=== PATIENT | male | born 1955 | race Caucasian/White ===

== ENCOUNTER 2019-01-27 06:39 | Inpatient (IN) ==
[2019-01-21 12:20] LABS: Basophils # (Auto) 0 K/mcL (0.0-0.3); Basophils % (Auto) 0.3 % (0.0-2.0); Eosinophils # (Auto) 0.1 K/mcL (0.0-0.7); Eosinophils % (Auto) 1.2 % (0.0-7.0); Granulocytes % (Auto) 64.7 % (38.0-78.0); Hematocrit 49.6 % (41.0-55.0); Hemoglobin 16.2 g/dL (13.5-16.5); Lymphocytes # (Auto) 1.5 K/mcL (1.5-4.8); Lymphocytes % (Auto) 26.9 % (15.5-49.0); Mean Cell Volume 87.2 fL (80.0-100.0); Mean Corpuscular HGB Conc 32.6 g/dL (31.0-36.0); Mean Platelet Volume 7.1 fL (7.4-10.4); Monocytes # (Auto) 0.4 K/mcL (0.1-0.9); Monocytes % (Auto) 6.9 % (1.0-12.0); Platelet Count 294 K/mcL (140-440); RBC 5.69 M/mcL (4.50-5.90); Red Cell Distribution Width 14.1 % (11.5-14.5); WBC 5.5 K/mcL (4.5-11.0)
[2019-01-21 12:42] LABS: Blood Urea Nitrogen 19 mg/dl (8-23); Calcium 9.7 mg/dl (8.6-10.4); Carbon Dioxide 27 mmol/L (22-30); Chloride 104 mmol/L (96-108); Glomerular Filtration Rate 89; Glucose 98 mg/dL (70-105)
[2019-01-21 12:51] LABS: Estimated Average Glucose(eAG) 117 mg/dL; Hemoglobin A1C 5.7 % HGB (4.0-6.0)
[2019-01-21 14:23] LABS: Appearance,Urine CLEAR; Bilirubin,Urine NEG (NEG); Color,Urine YELLOW; Glucose,Urine (UA) NEGATIVE (NEG); Ketones,Urine NEG (NEG); Leukocyte Esterase,Urine NEG /uL (NEG); Nitrate,Urine NEG (NEG); Protein,Urine NEG (NEG); Specific Gravity,Urine 1.014 (1.000-1.035); Urine Blood NEG mg/dL (<0.03); Urobilinogen,Urine NEG (NEG)
[~2019-01-27 06:39] MED LIST: CELECOXIB 200 MG CAPSULE PO SCH; IPRATROPIUM/ALBUTEROL 3 ML AMPUL.NEB NEB PRN; PREGABALIN 75 MG CAPSULE PO SCH; SCOPOLAMINE 1 PATCH PATCH TOPICAL PRN; ceFAZolin 2 GM in DEXTROSE 5% IN WATER 50 ML IV SCH; oxyCODONE 10 MG TAB.ER.12H PO SCH
[2019-01-27] MEDS ORDERED: ONDANSETRON 4 MG/2 ML VIAL IV ONE (10:00)
[2019-01-27] MEDS ORDERED: DEXAMETHASONE 10 MG/ML VIAL IV ONE (10:00)
[2019-01-27] MEDS ORDERED: PROPOFOL 200 MG/20 ML VIAL IV ONE (10:00)
[2019-01-27] MEDS ORDERED: PHENYLEPHRINE 10 MG/ML VIAL IV ONE (10:00)
[2019-01-27] MEDS ORDERED: MIDAZOLAM 5 MG/5 ML VIAL IV ONE (10:00)
[2019-01-27] MEDS ORDERED: FAMOTIDINE/PF 20 MG/2 ML VIAL IV ONE (10:00)
[2019-01-27] MEDS ORDERED: TRANEXAMIC ACID 1,000 MG/10 ML VIAL IV ONE ×2 (10:00→12:11)
[2019-01-27] MEDS ORDERED: LIDOCAINE HCL/PF 100 MG/5 ML SYRINGE IV ONE (10:00)
[2019-01-27] MEDS ORDERED: ePHEDrine 50 MG/ML AMPUL IV ONE (10:00)
[2019-01-27] MEDS ORDERED: ONDANSETRON 4 MG/2 ML VIAL IV PRN ×2 (11:07→12:11)
[2019-01-27] MEDS ORDERED: diphenhydrAMINE 50 MG/ML VIAL IV PRN (11:07)
[2019-01-27] MEDS ORDERED: NALOXONE HCL 0.4 MG/ML VIAL IV PRN (11:07)
[2019-01-27] MEDS ORDERED: IPRATROPIUM/ALBUTEROL 3 ML AMPUL.NEB NEB PRN (11:07)
[2019-01-27] MEDS ORDERED: METHOCARBAMOL 1,000 MG/10 ML VIAL IV PRN (11:07)
[2019-01-27] MEDS ORDERED: PROMETHAZINE 25 MG/ML VIAL IV PRN (11:07)
[2019-01-27] MEDS ORDERED: ePHEDrine 50 MG/ML AMPUL IV PRN (11:07)
[2019-01-27] MEDS ORDERED: ATROPINE SULFATE 0.4 MG/ML VIAL IV PRN (11:07)
[2019-01-27] MEDS ORDERED: FLUMAZENIL 0.1 MG/ML ML IV PRN (11:07)
[2019-01-27] MEDS ORDERED: METOPROLOL TARTRATE 5 MG/5 ML VIAL IV PRN (11:07)
[2019-01-27] MEDS ORDERED: fentaNYL 100 MCG/2 ML VIAL IV PRN (11:07)
[2019-01-27] MEDS ORDERED: MEPERIDINE 25 MG/ML SYRINGE IV PRN (11:07)
[2019-01-27] MEDS ORDERED: HYDROmorphone 2 MG/ML VIAL IV PRN (11:07)
[2019-01-27] MEDS ORDERED: LACTATED RINGERS 1,000 ML IV SCH (11:15)
--- NOTE | 2019-01-27 12:06 | Brief Operative Note ---
Date of procedure: 01/27/19 Pre-op diagnosis: Left hip severe DJD Post-op diagnosis: same Procedure: Left anterior total hip arthroplasty Grafts/Implants: Yes (Depuy Actis 9 std stem, +8.5 36 delta head, 56 cup, neutral altrx liner) Anesthesia: spinal, GLMA Findings: severe arthritis Complications: none Surgeon: João Sullivan Chemical Test Engineer: Von Laureano Specimens Removed/Pathology: none sent Condition: stable Disposition: PACU
--- NOTE | 2019-01-27 12:09 | XRay Report ---
CLINICAL INFORMATION: left total hip arthroplasty COMPARISON: None. FINDINGS: Digital images from the OR show left total hip prostheses placement which is anatomically aligned. No osseous abnormalities. Soft tissue swelling seen as expected IMPRESSION: Left total hip prostheses in anatomic alignment Interpreted and Authenticated by: Ravin Baltazar 01/27/19
[2019-01-27] MEDS ORDERED: MAGNESIUM HYDROXIDE 30 ML ORAL.SUSP PO PRN (12:11)
[2019-01-27] MEDS ORDERED: BISACODYL 10 MG SUPP.RECT PR PRN (12:11)
[2019-01-27] MEDS ORDERED: FLEETS ADULT ENEMA PR PRN (12:11)
[2019-01-27] MEDS ORDERED: POLYETHYLENE GLYCOL 3350 17 GM PACKET PO PRN (12:11)
[2019-01-27] MEDS ORDERED: KETOROLAC 30 MG/ML VIAL IV PRN (12:11)
[2019-01-27] MEDS ORDERED: BENZOCAINE/MENTHOL 1 LOZENGE PO PRN (12:11)
--- NOTE | 2019-01-27 12:52 | XRay Report ---
CLINICAL INFORMATION: Post-Op Total Hip COMPARISON: None. FINDINGS: Left total hip prostheses is anatomically aligned. No osseous abnormalities. Soft tissue swelling over the surgical site seen - as expected. Both SI and right hip joints are normal. IMPRESSION: Left total hip prostheses anatomically aligned Interpreted and Authenticated by: Ravin Baltazar 01/27/19
--- NOTE | 2019-01-27 12:55 | Operative Note ---
DATE OF OPERATION: 01/27/2019 PREOPERATIVE DIAGNOSIS: Left hip severe osteoarthritis. POSTOPERATIVE DIAGNOSIS: Left hip severe osteoarthritis. PROCEDURE PERFORMED: Left anterior total hip arthroplasty placing a DePuy Actis size 9 standard offset femoral stem; a +8.5, 36 mm delta ceramic head ball; a 56 [place] cup with a neutral Altrx liner. SURGEON: João Sullivan M.D. PACKING MACHINE CAN FEEDER: Jamison Laureano PA-C. The PA's assistance was required for the safe and efficient completion of the entire case. This provider's expertise and technical skill were required throughout the case. The PA assisted with preoperative coordination, intraoperative retraction, wound closure, dressing and splint application, as well as postoperative documentation and care coordination. ANESTHESIA: Spinal plus general. DRAINS: None. SPECIMENS: Femoral head which was discarded. BLOOD LOSS: 500 mL. COMPLICATIONS: None. POSTOPERATIVE CONDITION: Stable. INDICATIONS FOR SURGERY: This is a 63-year-old male who has had longstanding, severe left hip osteoarthritis. Radiographs showed complete obliteration of the joint space with large femoral head and acetabular osteophytes and deformation of the femoral head. FINDINGS AT SURGERY: As above. Post-procedure showed satisfactory component position with limb lengthening to equal his nonoperative side. PROCEDURE IN DETAIL: The patient had been seen preoperatively. Informed consent had been obtained after discussion of risks and benefits of surgery. Risks including, but not limited to, bleeding, possibly requiring transfusion; infection, possibly requiring implant removal and prolonged IV antibiotics; injury to nerves, blood vessels, and other surrounding structures; anesthetic risks; incomplete or no resolution of symptoms; leg length discrepancy; dislocation; fracture; DVT and pulmonary embolus risks; and the possibility of needing further revision surgery. He understood these risks and wished to proceed. Correct operative site was marked and then patient received spinal anesthesia. He was then taken to the operating room and LMA general given. He was carefully positioned on the Buckley table, and the left hip and groin were then carefully prepped and draped in normal sterile fashion, and a time-out was performed verifying patient name, operative site, and plan. Ioban was used to cover all skin surfaces. A standard anterior approach incision was made with a scalpel through skin and subcutaneous tissue. Hemostasis was obtained with Bovie cautery and then careful blunt dissection taken down onto the tensor fascia, and this was undermined circumferentially. Irrisept was irrigated and a ring retractor was placed. Tensor fascia was incised in line with the muscle fibers and then careful blunt dissection taken medial to the muscle belly. Blunt cobra retractors were placed on the superior and inferior neck and then circumflex vessels were coagulated and cut and vastus fascia split distally. An anterior capsulectomy was performed and capsule releases taken out towards the trochanters. Traction was placed on the leg. Corkscrew was placed in the femoral head and then osteotome used under fluoro to identify our neck cut trajectory. We then made our neck cut and removed the femoral head. Acetabulum was then exposed. He had very large osteophytes which were removed with a rongeur superiorly. What remained of labrum was removed and soft tissue was removed from the floor. I then used a reamer after irrigating Irrisept to medialize all the way to the tear drop and then increased reamer size and angle. His bone was very soft and the reamer ended up medializing all the way to the inner table. It took a 55 reamer to get rim ream satisfactory to get press-fit, so we went ahead and opened a 56 three-hole [place] cup. The acetabulum was irrigated again with Irrisept, after a minute copiously pulse lavaged with saline, and then the [id number] was used to impact the cup at about 45 degrees of inclination and 20 degrees of anteversion. JointPoint was used to verify cup position. We then removed the ME impactor and placed a center hole cover. He had very large osteophytes, essentially circumferentially, and so we spent about 15 minutes then working with osteotome to remove anterior and inferior osteophytes and then posterior osteophytes as well. Once we had all of these osteophytes removed, we then placed a neutral Altrx liner, carefully aligned the tabs and impacted. From that point of the procedure on after removing all the osteophytes, there was some steady oozing. We took traction off the leg and externally rotated, released capsule around the medial neck and posteriorly, and then the leg was extended and adducted. Capsule was released out to the greater trochanter, and once we had adequate proximal femur exposure, a box osteotome was used to gain canal entry and awl was used to identify canal trajectory. Rongeur and rasp were used to lateralize. Again, his bone was quite soft here. We started broaching and sequentially broached up to a size 7 that we preoperatively templated on. This sunk a little bit below our neck cut, so we calcar planed down onto it. We then trialed with a +1.5 head ball and a high offset neck given the medialization of the cup. Hip reduced very easily with minimal tension. JointPoint was used with fluoro to check our leg length and offset, and with that we were not lengthening the leg at all and our offset was just about equal. I went ahead then and redislocated, and we broached up to a size 8. This was seating below our neck cut still, so I went up to a size 9. This seated right at our neck cut. I used a hand broach just to feel where a 10 would hang up, and it appeared that the 10 would be way too long, so using JointPoint we figured that with a 9 standard offset stem and a +8.5 neck that would give us some increased leg length, as well as increase our offset instead of needing a high offset stem, so I went ahead and opened a 9 standard offset stem. We removed the trial implant and irrigated the femoral canal with Irrisept. After waiting a minute, I pulse lavaged copiously with saline. The stem was then impacted and it did seat on our calcar, so I went ahead and trialed the +8.5. There was some good tension without being excessive with reduction. Fluoro was brought in and an x-ray checked and JointPoint used to check, and we were lengthened 5 mm on the leg and offset was only increased by 1 mm, so we went ahead and redislocated. We removed the trial head ball. The stem was cleaned and dried and then the 36, +8.5 delta head was opened. This was impacted onto the stem with the [id number]. We then reduced the hip. Final fluoro images were taken and saved. We filled the joint with Irrisept, after a minute pulse lavaged copiously with saline, and then #1 Vicryl running stitch was used in two running stitches to close the tensor fascia. Ring retractor was removed and Irrisept irrigated a final time, after a minute pulse lavage with saline. Fat was tacked to fascia and then 2-0 Monocryl used for subcutaneous and joseph for skin. Xeroform and sterile dressing were applied. The patient was then awakened, extubated, and transferred to recovery in stable condition. [email or web address] Job ID: [id number] Doc ID: [id number] João Sullivan MD
[2019-01-27] MEDS: 0.9 % SODIUM CHLORIDE 10 ML SYRINGE IV SCH ×2 (15:35→20:58)
[2019-01-27] MEDS: ceFAZolin 1 GM VIAL IV SCH (17:37)
[2019-01-27] MEDS: 0.9 % SODIUM CHLORIDE 1,000 ML IV SCH ×2 (17:37→20:28)
[2019-01-27] MEDS: HYDROCODONE/APAP 7.5/325MG TABLET PO PRN ×2 (17:38→21:00)
[2019-01-27] MEDS: DOCUSATE SODIUM 100 MG CAPSULE PO SCH (20:58)
[2019-01-27] MEDS ORDERED: SENNOSIDES 1 TABLET PO SCH (21:00)
[2019-01-28] MEDS: ceFAZolin 1 GM VIAL IV SCH (01:22)
[2019-01-28] MEDS: 0.9 % SODIUM CHLORIDE 1,000 ML IV SCH ×2 (04:36→11:50)
[2019-01-28] MEDS: HYDROCODONE/APAP 7.5/325MG TABLET PO PRN (05:57)
[2019-01-28] MEDS: 0.9 % SODIUM CHLORIDE 10 ML SYRINGE IV SCH ×2 (05:58→14:56)
--- NOTE | 2019-01-28 06:44 | Discharge Summary ---
Providers - Providers Patient information: Note initiated : 01/28/19 at 6:39 am Service Date, if different from initiated Date: [] Patient: Ravin Diaz 63 y/o M admitted on 01/27/19 for Left Total Hip Arthroplasty Anterior. Chief Complaint: [] Discharge date: 01/28/19 Hospitalization Hospital Course: Pt was admitted for a L ASHUTOSH. Pt underwent the procedure on the day of admission. Discharged post-op day 1. ASA for DVT prophylaxis. F/u in 2 weeks. Discharge diagnosis: L hip OA Exam - Exam Clean and dry: Yes Weight bearing status: as tolerated Ortho Discharge - ASHUTOSH - Patient Instructions Diet: Regular Diet Activity: activity as tolerated Total Hip Protocol: Follow activity instructions as provided by Physical Therapy. Dressing Care: May shower in 2 days - Follow Up Plan Follow Up Appointments: Von Laureano PA-C [Physician Case Management Manager] - 02/11/19 1:00 pm Disposition: Home, Self-Care Prognosis: Good Rehab Potential: Good Overall status at discharge: patient is progressing back to baseline - Orders For Discharge Prescriptions: Aspirin 81 tab CHEWED DAILY #30 tab.chew Transmission Status: Pending to [facility] Hydrocodone/APAP 7.5/325Mg [[place] 7.5-325Mg] 1 - 2 tab PO Q4HP PRN #90 tab PRN Reason: Pain Level 3-6 Prescription Printed Pending Studies Resuscitation Status Full Code Diet Regular Diet Start FriJan 27 121 Hydrocodone Bitart/Acetaminophen ([place] 7.5/325mg) 0 tab PO Q4HP PRN PRN Reason: PAIN LEVEL 3-6 Last Admin: 01/28/19 05:57 Dose: 1 tab Documented by: Admin: 01/27/19 21:00 Dose: 1 tab Documented by: Admin: 01/27/19 17:38 Dose: 1 tab Documented by: [email or web address] Docusate Sodium (Colace) 100 mg PO BID [facility] Last Admin: 01/27/19 20:58 Dose: 100 mg Documented by: TABBY Sodium Chloride (Sodium Chloride 0.9%) 1,000 mls @ 125 mls/hr IV .Q8H PATITO Last Admin: 01/28/19 04:36 Dose: Not Given Documented by: Infusion: 01/28/19 01:33 Dose: 0 mls/hr Documented by: Admin: 01/27/19 20:28 Dose: Not Given Documented by: Admin: 01/27/19 17:37 Dose: 125 mls/hr Documented by: [email or web address] Ketorolac Tromethamine (Toradol) 30 mg IV Q6HP PRN PRN Reason: Pain Stop: 01/29/19 12:15 Last Admin: 01/27/19 17:35 Dose: 30 mg Documented by: [email or web address] Senna (Senokot) 2 tab PO HS PATITO Last Admin: 01/27/19 20:58 Dose: 2 tab Documented by: TABBY Sodium Chloride (Saline Flush) 10 ml IV Q8 PATITO Last Admin: 01/28/19 05:58 Dose: 10 ml Documented by: Admin: 01/27/19 20:58 Dose: Not Given Documented by: Admin: 01/27/19 15:35 Dose: Not Given Documented by: [email or web address] Shift Summary 01/28/19 04:30 Shift Summary by Agueda Ramirez A&O. Calls appropriately. EBL was 500ml. Patient has some dizziness still when getting up though it has been getting better as the night goes. Ambulated to nursing station x2. Voiding well, PVRs are down to 130-175mls. Up with 1 assist, mostly SBA, FWW and GB. VSS on RA. 18G IV to LFA, SL. Medicated just one time so far with 1 tab [place] 7.5mg at HS and ice packs. I have encouraged a pill at 0600 for PT, he is agreeable. Should d/c home today, needs to work on stairs, he lives alone and there are steps to get into his house. Initialized on 01/28/19 04:30 - END OF NOTE
[2019-01-28 06:45] LABS: Hematocrit 38.3 % (41.0-55.0); Hemoglobin 12.7 g/dL (13.5-16.5)
[2019-01-28] MEDS ORDERED: OMEPRAZOLE 20 MG CAPSULE PO SCH (07:30)
[2019-01-28] MEDS ORDERED: ASPIRIN 81 MG TAB.CHEW CHEWED SCH (09:00)
[2019-01-28] MEDS: DOCUSATE SODIUM 100 MG CAPSULE PO SCH (10:38)
[2019-01-28] MEDS ORDERED: 0.9 % SODIUM CHLORIDE 500 ML IV ONE ×2 (13:45→14:39)
== END 2019-01-28 18:00 | disposition home or self-care (01) | DRG 470 ==
LOC: MEDSUR 06:39
PROVIDERS: ADMIT Orthopaedic Surgery; ATTEND Orthopaedic Surgery